=== PATIENT | male | born 1990 | race African-American/Black ===

== ENCOUNTER 2017-02-08 10:55 | Emergency (ER) | payer OTHER ==
[~2017-02-08] VITALS: Ht 180.3 cm; Wt 122.5 kg
--- NOTE | ~2017-02-08 | EKG ---
[address] [place] [address] ELECTROCARDIOGRAM REPORT Name: ANEL GAMBLE Room #: [facility] Jolene#: [id number] Admission: 02/08/17 Attend Phys: Discharge: 02/08/17 Date of : [birth year] Report #: [id number] THIS REPORT FOR: //name// [facility] ED Test Date: 2017-02-08 Test Time: 11:02:37 Pat Name: ANEL GAMBLE Department: Room: Gender: [employer]: Toby DAMON : 1990 Requested By: Colt Arteaga Order Number: [id number] MD: Anders Burroughs Measurements Intervals [place] Rate: 94 P: 59 OK: 116 QRS: 49 QRSD: 97 T: 12 QT: 339 QTc: 424 Interpretive Statements Sinus rhythm Borderline short OK interval Probable left atrial enlargement Compared to ECG 02/05/2017 21:54:51 Sinus tachycardia no longer present T-wave abnormality no longer present Electronically Signed On 02-08-2017 15:34:00 CDT by Anders Burroughs [email or web address] <ELECTRONICALLY SIGNED> By: Anders Burroughs MD 02/08/17 1534 01 01 Anders Burroughs MD /[place]
[~2017-02-08 10:55] MED LIST: NORCO 5-325 TA1 EACH PO; PROTONIX40 MG PO
[2017-02-08 12:15] LABS: ABSOLUTE NEUTROPHILS 2.8 thou/uL (1.4-8.2); BASOPHILS 0.9 % (0.0-2.0); EOSINOPHILS 1.5 % (0.0-3.0); HEMATOCRIT 42.1 % (42.0-52.0); HEMOGLOBIN 14.2 gm/dL (14.0-18.0); LYMPHOCYTES 42.5 % (24.0-44.0); MCH 29.6 pg (26.0-34.0); MCHC 33.7 g/dL (28.0-37.0); MCV 87.8 fL (80.0-100.0); MONOCYTES 4.1 % (1.0-8.0); PLATELET COUNT 186 thou/uL (150-400); RDW 13.7 % (10.5-14.5); WBC 5.5 thou/uL (4.0-11.0)
[2017-02-08 12:18] LABS: MANUAL DIFF NO
[2017-02-08 12:26] LABS: ANION GAP 6 mmol/L (7-16); BUN 16 mg/dL (7-18); CALCIUM 9.2 mg/dL (8.5-10.1); CHLORIDE 106 mmol/L (98-107); CO2 27 mmol/L (21-32); CREATININE 1.3 mg/dL (0.7-1.3); GLUCOSE 85 mg/dL (74-106); POTASSIUM 4.2 mmol/L (3.5-5.1); SODIUM 139 mmol/L (136-145)
[2017-02-08 12:34] LABS: ALBUMIN 3.9 g/dL (3.4-5.0); ALKALINE PHOSPHATASE 62 U/L (46-116); SGOT 20 U/L (15-37); SGPT 34 U/L (30-65); TOTAL BILIRUBIN 0.3 mg/dL (<0.1-1.0); TOTAL PROTEIN 7.1 g/dL (6.4-8.2); TROPONIN-I < 0.04 ng/mL (<0.06)
[2017-02-08] MEDS ORDERED: CARAFATE 1 GM TA1 G1 PO (13:11)
[2017-02-08 13:25] VITALS: BP 118/67
== END 2017-02-08 13:25 | disposition home or self-care (01) ==
LOC: ER 10:55
PROVIDERS: Physician Assistant
DX: K21.9 Gastro-esophageal reflux disease without esophagitis (principal); F17.210 Nicotine dependence, cigarettes, uncomplicated; F10.99 Alcohol use, unspecified with unspecified alcohol-induced disorder

== ENCOUNTER 2017-10-20 05:20 | Emergency (ER) | payer OTHER ==
[~2017-10-20] VITALS: Ht 180.3 cm; Wt 117.9 kg
[~2017-10-20 05:20] MED LIST changes: +CARAFATE 1 GM TA1 G1 PO
[2017-10-20] MEDS ORDERED: MAPAP500 MG PO (05:33)
[2017-10-20] MEDS ORDERED: LIDOCAINE 2%2 %/5 GM RECTAL (05:47)
[2017-10-20] MEDS ORDERED: HYDROCORTISONE30 G9 RECTAL (05:47)
[2017-10-20 06:30] VITALS: BP 142/90
== END 2017-10-20 07:09 | disposition home or self-care (01) ==
LOC: ER 05:20
DX: K59.00 Constipation, unspecified (principal); K62.89 Other specified diseases of anus and rectum; F17.210 Nicotine dependence, cigarettes, uncomplicated

== ENCOUNTER 2018-05-01 09:22 | Emergency (ER) | payer OTHER ==
[~2018-05-01] VITALS: Ht 180.3 cm; Wt 122.5 kg
[~2018-05-01 09:22] MED LIST changes: +HYDROCORTISONE30 G9 RECTAL; +LIDOCAINE 2%2 %/5 GM RECTAL; +MAPAP500 MG PO
[2018-05-01 09:59] LABS: URINE BILIRUBIN NEGATIVE (Negative); URINE BLOOD NEGATIVE (Negative); URINE CLARITY CLEAR; URINE COLOR YELLOW; URINE GLUCOSE-RANDOM* NEGATIVE (Negative); URINE KETONES NEGATIVE (Negative); URINE LEUKOCYTES-REFLEX NEGATIVE (Negative); URINE NITRITE-REFLEX NEGATIVE (Negative); URINE PROTEIN (DIPSTICK) NEGATIVE (Negative); URINE SPECIFIC GRAVITY 1.015 (1.005-1.035); URINE UROBILINOGEN 0.2 E.U./dl (0.2-1.0)
[2018-05-01] MEDS ORDERED: NAPROSYN500 MG PO (11:23)
[2018-05-01] MEDS ORDERED: NORFLEX100 MG PO (11:23)
[2018-05-01 11:42] VITALS: BP 122/67
== END 2018-05-01 11:30 | disposition home or self-care (01) ==
LOC: ER 09:22
PROVIDERS: Physician Assistant
DX: G44.209 Tension-type headache, unspecified, not intractable (principal); E86.0 Dehydration; F17.210 Nicotine dependence, cigarettes, uncomplicated